=== PATIENT | female | born 1990 | race Caucasian/White ===

== ENCOUNTER 2022-07-10 00:31 | Inpatient (IN) | payer BC ==
[~2022-07-10] VITALS: Ht 160 cm; Wt 136.5 kg
--- NOTE | 2022-07-11 12:13 | PR ---
[facility] [address] [facility] [place], [place] [address] Signed PP Progress Notes Datetime Report Generated by CPN: 07/11/2022 12:13 SUBJECTIVE: [id number] Pain: Within Normal Limits Nausea/Vomiting: Denies Flatus: Yes Vital Signs: [id number] Vital Signs: Reviewed Notable Details: labile bps; likely positional. Reviewed proper BP cuff and s/sx w/ RNs. Will monitor EXAM: Ongoing Cardiovascular: Normal Respiratory: Normal Abdomen/Uterus: Normal Lochia: Normal Vulva/Perineum: Not Done Breasts: Not Done CVA Tenderness: Normal Extremities: Normal Incision: Not Applicable Progress: Normal Exam Comments: Fundus firm U-2 nontender IMPRESSION/PLAN/PROCEDURES: [id number] Impression: Normal Progression Plan: Continue Present Management Progress Notes: Pt seen and evaluated. Doing well. Ambulating, voiding, and tolerating full diet. Pain and lochia minimal. well. No fevers/chills or other concerns. Some labile bps but suspect inaccurate readings due to obesity and positon. Monitor closely. Anticipate d/c home tomorrow Signing Physician: Urban Brooke DO Copies: ~ *Electronically Signed* 07/11/22 1210 URBAN BROOKE DO PATIENT NAME: ITZEL TANNER PROGRESS NOTE DATE OF : 86 PHYSICIAN: URBAN BROOKE DO RPT #: [id number] REPORT IS CONFIDENTIAL AND NOT TO BE RELEASED WITHOUT AUTHORIZATION
--- NOTE | 2022-07-12 11:08 | PR ---
[facility] [address] [place], [place] [address] Signed PP Progress Notes Datetime Report Generated by CPN: 07/12/2022 11:08 SUBJECTIVE: [id number] Pain: Within Normal Limits Nausea/Vomiting: Denies Flatus: Yes Vital Signs: [id number] Vital Signs: Reviewed; Within Normal Limits Notable Details: labile bps; likely positional. Reviewed proper BP cuff and s/sx w/ RNs. Will monitor EXAM: Met Cardiovascular: Normal Respiratory: Normal Abdomen/Uterus: Normal Lochia: Normal Vulva/Perineum: Not Done Breasts: Not Done CVA Tenderness: Normal Extremities: Normal Incision: Not Applicable Progress: Normal Exam Comments: Fundus firm U-2 nontender IMPRESSION/PLAN/PROCEDURES: [id number] Impression: Normal Progression Plan: Discharge Progress Notes: Pt seen and examined. Doing well. Ambulating, voiding, and tolerating full diet. Pain and lochia minimal. well. No fever/chills or other concerns. w/ elevated bilirubin requiring addition inpatient stay. Will d/c patient to border status. Reviewed d/c instructions and medications in detail. All questions answered. Signing Physician: Urban Brooke DO Copies: ~ *Electronically Signed* 07/12/22 1108 URBAN BROOKE DO PATIENT NAME: ITZEL TANNER PROGRESS NOTE DATE OF : 86 PHYSICIAN: URBAN BROOKE DO RPT #: [id number] REPORT IS CONFIDENTIAL AND NOT TO BE RELEASED WITHOUT AUTHORIZATION
--- NOTE | 2022-07-15 18:12 | PATH ---
[facility] [address] [place], [place] [address] Signed SPECIMEN(S): A PLACENTA SPECIMEN SOURCE: A. PLACENTA CLINICAL HISTORY: Mother's age: 32. OB history: G3, P2, A1 (spontaneous). Gestational age: 38.2. 's weight: 7 pounds 7 ounces. score: 8, 9. Rhogam: no. Specific issues of concern: COVID in . FINAL PATHOLOGIC DIAGNOSIS: Placenta, delivery type unspecified: - 519 gram placenta with the following features: - Weight is 50-75 percentile for gestational age of 38 and 2/7 weeks. - Third trimester villous morphology with slight increased syncytial knotting. - Focal perivillous and perivascular fibrin deposits are present. 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 - No remote infarcts identified. - Negative for villitis and intervillositis. - Three vessel umbilical cord with eccentric insertion; negative for acute funisitis. - membrane with 30% circummarginate and 70% marginal insertion; negative for acute subchorionitis. - [place] grading and staging: - Maternal inflammatory response: Stage I - acute subchorionitis; grade 1 - not severe. - inflammatory response: None identified. COMMENT: Although focal perivillous and perivascular fibrin deposits and a recent infarct are present, the placenta lacks other features typically associated with COVID-19 placentitis, such as trophoblastic necrosis, chronic histiocytic intervillositis, or numerous intervillous thrombi. SDL:stacy:C2SIRENA MICROSCOPIC EXAMINATION: Histologic sections of all submitted blocks are examined by light microscopy. PATIENT NAME: ITZEL TANNER PATHOLOGY DATE OF : 86 REPORT #: [id number] PHYSICIAN: EDUARDO PILLAI PCP: NO PRIMARY CARE PHYSICIAN REPORT IS CONFIDENTIAL AND NOT TO BE RELEASED WITHOUT AUTHORIZATION [facility] [address] [place], [place] [address] Signed These findings, together with the gross examination, support the pathologic diagnosis. GROSS DESCRIPTION: The specimen, labeled "LC, per the requisition, placenta," is received fresh and placed in formalin and consists of a callahan discoid placenta with the following parameters: Umbilical cord: Insertion eccentric 2.2 cm from the margin, measurement 16.3 x 1.3 cm; trivascular. Additional cord segment that measures 20.8 x 1.5 cm. Cord coiling index (per 10 cm): Approximately 1.5. Lesions: Yellow to slightly diffusely edematous and no lesions grossly identified. Membranes: Insertion site: Marginal to approximately 30% circummarginate, yo-otoole to barely translucent, rupture site 6.7. Intact. Other: Not grossly identified. Chorionic Plate: Normal radiating vascular pattern, blue-otoole, and shiny to dull. Lesions: A subchorionic hematoma underlining the umbilical insertion, measuring 4.6 x 1.5 cm, and occupies less than 2% of the surface. Other: Not grossly identified. Maternal Surface: Normal cotyledons, intact. Lesions: No grossly identified. Measurement: 21.6 x 18.1 x 2.7 cm. Weight (trimmed): 519 g Cut Surface: Maroon and spongy. Lesions: A single peripheral yo to red gelatinous lesion, consistent with an infarct that measures 1.3 x 0.9 x 0.7 cm. The lesion occupies less than 2% of the parenchyma. Basal plate fibrin is 0.2 cm in thickness. Other Findings: Not grossly identified. Cassette Summary: (A1) membranes and umbilical cord (A2) central placental parenchyma (A3) central placental parenchyma (A4) peripheral placenta parenchyma with infarct. CA (under the direct supervision of a pathologist) The Gross Description was prepared using a voice recognition system. The report was reviewed for accuracy; however, sound-alike word errors, addition and/or deletions may occur. If there is any question about this report, please contact Client Services. PERFORMING LABORATORY: The technical component was performed by [employer], [address] [place] [id number] (CLIA# [id number]). Professional interpretation was performed by [employer] [facility] PATIENT NAME: ITZEL TANNER PATHOLOGY DATE OF : 86 REPORT #: [id number] PHYSICIAN: EDUARDO PILLAI PCP: NO PRIMARY CARE PHYSICIAN REPORT IS CONFIDENTIAL AND NOT TO BE RELEASED WITHOUT AUTHORIZATION [facility] [address] [place] [id number] [address] [address] (CLIA#: [id number]). Diagnostician: Chio Parnell MD Pathologist Electronically Signed 07/15/2022 Copies: ~ PATIENT NAME: ITZEL TANNER PATHOLOGY DATE OF : 86 REPORT #: [id number] PHYSICIAN: EDUARDO PATHOLOGY PCP: NO PRIMARY CARE PHYSICIAN REPORT IS CONFIDENTIAL AND NOT TO BE RELEASED WITHOUT AUTHORIZATION
== END 2022-07-12 12:00 | disposition home or self-care (01) | DRG 807 ==
LOC: FBC 00:31
PROVIDERS: ADMIT General Practice; ATTEND Obstetrics & Gynecology
PROC: 10E0XZZ Delivery of Products of Conception, External Approach (ICD-10-PCS; principal; 2022-07-10)
PROC: 0KQM0ZZ Repair Perineum Muscle, Open Approach (ICD-10-PCS; 2022-07-10)
DX: O62.3 Precipitate labor (principal); Z37.0 Single live birth; Z3A.38 38 weeks gestation of pregnancy; O70.1 Second degree perineal laceration during delivery; Z67.40 Type O blood, Rh positive; Z86.16 Personal history of COVID-19; O99.284 Endocrine, nutritional and metabolic diseases complicating childbirth; E03.9 Hypothyroidism, unspecified; Z20.822 Contact with and (suspected) exposure to COVID-19; O99.214 Obesity complicating childbirth
CPT/HCPCS: 36415; 85027; 86850; 86900; 86901; 87502; A9270; C9803; J2590; U0003